=== PATIENT | male | born 1990 ===

== ENCOUNTER 2017-11-27 04:40 | Emergency (ER) | payer SELFPAY ==
[2017-11-27 04:52] VITALS: BP 126/76
--- NOTE | 2017-11-27 06:12 | XRay Report ---
FINAL REPORT EXAM: XR KNEE 1-2V RT HISTORY: fall COMPARISONS: None. FINDINGS: AP and lateral views right knee A suprapatellar joint effusion is present. Anatomic alignment of the right knee with preserved joint spaces and smooth subchondral surfaces. No fracture. IMPRESSION: Suprapatellar joint effusion without fracture or gross malalignment. Consider follow-up MRI for evaluation of structural soft tissues as warranted.
[2017-11-27] MEDS ORDERED: MOTRIN PO ONE (08:29)
--- NOTE | 2017-11-27 08:34 | Emergency Department Report ---
ED Lower Extremity HPI - General Chief Complaint: Extremity Injury, Lower Stated Complaint: SWELLING TO RLE/KNEE Time Seen by Provider: 11/27/17 07:48 Source: patient Mode of arrival: Ambulatory Limitations: No Limitations - History of Present Illness Initial Comments: 27-year-old male past medical history none presents with complaint of right knee pain for 5 days. Patient states while playing football while making a sudden twisting motion he jerked his right knee and felt a pop. States his cleat got stuck in the ground which led to talk with movement. Has exudative pain and swelling in his right knee since this past Thursday. Patient is ambulatory but states that when he bears weight on his right knee or flexes his right knee he experiences pain in his right knee joint. Patient denies any other pain or denies sustaining any other injuries. Patient is awake alert and oriented 3 and ambulatory without assistance. Fully lucid. States he has been using a knee brace icing his knee and resting his knee since the injury. MD Complaint: knee injury Onset/Timin -: days(s) Injury: Knee: Right Severity: moderate, severe Severity scale (0 -10): 7 Improves With: cold therapy, immobilization Worsens With: weight bearing, movement, palpation Context: running, jumping Associated Symptoms: snap/pop sensation, swelling, ambulatory Treatments Prior to Arrival: cold therapy, bandage, splint - Related Data Previous Rx's Medication Instructions Recorded Last Taken Type Acetaminophen/Codeine [Tylenol 1 tab PO Q6H PRN #8 tab 11/27/17 Unknown Rx /Codeine # 3 tab] Ibuprofen [Motrin] 800 mg PO Q8HR PRN #30 tablet 11/27/17 Unknown Rx Allergies Allergy/AdvReac Type Severity Reaction Status Date / Time No Known Allergies Allergy Unverified 11/27/17 04:47 ED Review of Systems ROS: Stated complaint: SWELLING TO RLE/KNEE Other details as noted in HPI Constitutional: denies: chills, fever Eyes: denies: eye pain, eye discharge, vision change ENT: denies: ear pain, throat pain Respiratory: denies: cough, shortness of breath, wheezing Cardiovascular: denies: chest pain, palpitations Endocrine: no symptoms reported Gastrointestinal: denies: abdominal pain, nausea, diarrhea Genitourinary: denies: urgency, dysuria Musculoskeletal: joint swelling (right knee), arthralgia. denies: back pain Skin: denies: rash, lesions Neurological: denies: headache, weakness, paresthesias Psychiatric: denies: anxiety, depression Hematological/Lymphatic: denies: easy bleeding, easy bruising ED Past Medical Hx - Past Medical History Previous Medical History?: No - Surgical History Past Surgical History?: Yes Additional Surgical History: left leg skin graft - Social History Smoking Status: Never Smoker Substance Use Type: Marijuana - Medications Home Medications: Home Medications Medication Instructions Recorded Confirmed Last Taken Type Acetaminophen/Codeine [Tylenol 1 tab PO Q6H PRN #8 tab 11/27/17 Unknown Rx /Codeine # 3 tab] Ibuprofen [Motrin] 800 mg PO Q8HR PRN #30 tablet 11/27/17 Unknown Rx ED Physical Exam - General Limitations: No Limitations General appearance: alert, in no apparent distress - Head Head exam: Present: atraumatic, normocephalic - Eye Eye exam: Present: normal appearance - ENT ENT exam: Present: mucous membranes moist - Neck Neck exam: Present: normal inspection - Respiratory Respiratory exam: Present: normal lung sounds bilaterally. Absent: respiratory distress - Cardiovascular Cardiovascular Exam: Present: regular rate, normal rhythm. Absent: systolic murmur, diastolic murmur, rubs, gallop - GI/Abdominal GI/Abdominal exam: Present: soft, normal bowel sounds - Rectal Rectal exam: Present: deferred - Extremities Exam Extremities exam: Present: normal inspection - Expanded Lower Extremity Exam Right Upper Leg exam: Present: normal inspection, full ROM Knee exam: Present: full ROM, tenderness, swelling (swelling anterior knee. No cellulitis or erythema noted on exam.), effusion, pain/laxity with valgus, pain/ laxity with varus, full knee extension Lower Leg exam: Present: normal inspection, full ROM Ankle exam: Present: normal inspection, full ROM Foot/Toe exam: Present: normal inspection, full ROM Neuro vascular tendon exam: Present: no vascular compromise (distal dorsalis pedis and posterior tibial pulses strong to palpation) Gait: Positive: antalgic 1 - Slight swelling anterior right knee joint - Back Exam Back exam: Present: normal inspection - Neurological Exam Neurological exam: Present: alert, oriented X3, CN II-XII intact, abnormal gait (antalgic gait secondary to pain) - Expanded Neurological Exam Expanded Motor strength exam: RUE: 5, LUE: 5, RLE: 5, LLE: 5 - Psychiatric Psychiatric exam: Present: normal affect, normal mood - Skin Skin exam: Present: warm, dry, intact, normal color. Absent: rash ED Course Vital Signs 11/27/17 04:48 Temperature 98.2 F Pulse Rate 72 Respiratory 18 Rate Blood Pressure 126/76 O2 Sat by Pulse 100 Oximetry ED Lower Extremity MDM - Medical Decision Making A/P: Right knee injury, possible meniscus or right knee ligament 1-patient states he already has supportive knee brace. Patient provided with crutches 2-Motrin when necessary, RICE therapy, short course Tylenol 3 3-based on clinical examination is 3 patient likely has sustained meniscus MCL or anterior cruciate ligament injury. I emphasized the importance of follow-up with orthopedics to the patient. Patient stated he will call for an appointment as soon as possible to follow up with outpatient orthopedics. X- ray shows effusion but no fractures. Neurovascular exam right lower extremity within normal limits distal pulses and sensation are intact on exam Critical care attestation.: If time is entered above; I have spent that time in minutes in the direct care of this critically ill patient, excluding procedure time. ED Disposition Clinical Impression: Right knee pain Qualifiers: Chronicity: acute Qualified Code(s): M25.561 - Pain in right knee Injury of knee, ligament Qualifiers: Encounter type: initial encounter Laterality: right Qualified Code(s): S89.91XA - Unspecified injury of right lower leg, initial encounter Disposition: TO HOME OR SELFCARE Is pt being admited?: No Does the pt Need Aspirin: No Condition: Stable Instructions: Crutch Instructions (ED), Knee Effusion (ED), Knee Pain (ED) Additional Instructions: [email or web address] Prescriptions: Acetaminophen/Codeine [Tylenol /Codeine # 3 tab] 1 tab PO Q6H PRN #8 tab PRN Reason: Pain , Severe (7-10) Ibuprofen [Motrin] 800 mg PO Q8HR PRN #30 tablet PRN Reason: Pain , Severe (7-10) Referrals: ROXY DELAROSA MD [Staff Physician] - 3-[address] [facility] [Provider Group] - 3-[address] [facility] [Provider Group] - 3-5 Days Forms: Work/School Release Form(ED) Time of Disposition: 08:31
== END 2017-11-27 08:55 | disposition home or self-care (01) ==
LOC: ED 04:40
DX: S89.91XA Unspecified injury of right lower leg, initial encounter (principal); F12.10 Cannabis abuse, uncomplicated; X58.XXXA Exposure to other specified factors, initial encounter; Y93.61 Activity, american tackle football; Y92.89 Other specified places as the place of occurrence of the external cause; Y99.8 Other external cause status
CPT/HCPCS: 99283